=== PATIENT | male | born 1995 | race Caucasian/White ===

== ENCOUNTER 2019-08-19 00:02 | Emergency (ER) | payer OTHER ==
--- NOTE | 2019-08-19 00:29 | ERPHSYRPT ---
- History of Present Illness Time Seen by Provider: 08/19/19 00:24 Historian: patient Exam Limitations: no limitations Physician History: pt is a 24 yr old male reporting trauma to pelvic area today followed by pain across the lower pelvic region; abd itself nontender;no N or V , no fever; denies urinary symptoms or discharge or genital injury or pain;no palp hernia Timing/Duration: today Activities at Onset: other (trauma) Quality: fullness, pressure, tightness Abdominal Pain Onset Location: suprapubic Severity of Pain-Max: moderate Severity of Pain-Current: moderate Modifying Factors: Improves With: movement, palpation Associated Symptoms: denies symptoms Previous symptoms: no prior history Allergies/Adverse Reactions: cefdinir [From OmniceMobilio] Allergy (Mild, Verified 08/19/19 00:30) dpt Allergy (Mild, Uncoded 08/19/19 00:30) Home Medications: No Reportable Medications [No Reported Medications] 08/19/19 [History] Hx Tetanus, Diphtheria Vaccination/Date Given: No Hx Influenza Vaccination/Date Given: No Hx Pneumococcal Vaccination/Date Given: No - Review of Systems Constitutional: No Fever, No Chills Eyes: No Symptoms Ears, Nose, & Throat: No Symptoms Respiratory: No Cough, No Dyspnea Cardiac: No Chest Pain, No Edema, No Syncope Abdominal/Gastrointestinal: Other (pelvic pain), No Abdominal Pain, No Nausea, No Vomiting, No Diarrhea Genitourinary Symptoms: No Dysuria Musculoskeletal: No Back Pain, No Neck Pain Skin: No Rash Neurological: No Dizziness, No Focal Weakness, No Sensory Changes Psychological: No Symptoms Endocrine: No Symptoms All Other Systems: Reviewed and Negative - Past Medical History Pertinent Past Medical History: No - Past Surgical History Past Surgical History: Yes Other Surgical History: tubes in earx2. eye surgery - Social History Smoking Status: Never smoker Exposure to second hand smoke: No Drug Use: none Patient Lives Alone: No - Nursing Vital Signs Nursing Vital Signs: Initial Vital Signs Temperature 97.7 F 08/19/19 00:14 Pulse Rate 94 H 08/19/19 00:14 Respiratory Rate 16 08/19/19 00:14 Blood Pressure 155/86 08/19/19 00:14 O2 Sat by Pulse Oximetry 95 08/19/19 00:14 Pain Scale Pain Intensity 6 - Physical Exam General Appearance: no apparent distress, alert Eye Exam: PERRL/EOMI, eyes nml inspection Ears, Nose, Throat Exam: normal ENT inspection, pharynx normal, moist mucous membranes Neck Exam: normal inspection, non-tender, supple, full range of motion Respiratory Exam: normal breath sounds, lungs clear, No respiratory distress Cardiovascular Exam: regular rate/rhythm, normal heart sounds Gastrointestinal/Abdomen Exam: soft, No tenderness, No distention, No mass, No guarding, No pulsatile mass, No rebound, No hernia Male Genitalia Exam: No hernia, No testicular tenderness Rectal Exam: deferred Back Exam: normal inspection, normal range of motion, No CVA tenderness, No vertebral tenderness Extremity Exam: normal inspection, normal range of motion, pelvis stable Neurologic Exam: alert, oriented x 3, cooperative, normal mood/affect, nml cerebellar function, sensation nml, No motor deficits Skin Exam: normal color, warm, dry - Course Nursing assessment & vital signs reviewed: Yes - Radiology Exams Pelvis X-ray Interpretation: Reviewed by me, No Fracture Ordered Tests: Active Orders 24 hr Category Date Time Status PO Fluid Challenge STAT Care 08/19/19 01:39 Active PELVIS (1 OR 2 VIEWS) Stat Exams 08/19/19 00:23 Taken AMYLASE Stat Lab 08/19/19 01:00 Completed CBC W DIFF Stat Lab 08/19/19 01:00 Completed CMP Stat Lab 08/19/19 01:00 Completed LIPASE Stat Lab 08/19/19 01:00 Completed Lactic Acid Stat Lab 08/19/19 00:21 Completed Manual Differential NC Stat Lab 08/19/19 01:00 Completed UA W/RFX UR CULTURE Stat Lab 08/19/19 01:00 Completed Lab/Rad Data: Laboratory Result Diagrams 08/19/19 01:00 08/19/19 01:00 Laboratory Results 08/19/19 08/19/19 08/19/19 Range/Units 01:00 01:00 01:00 WBC 17.3 H (4.0-10.5) K/mm3 RBC 5.16 (4.1-5.6) M/mm3 Hgb 16.3 (12.5-18.0) gm/dl Hct 44.6 (42-50) % MCV 86.4 (78-100) fl MCH 31.6 (26-32) pg MCHC 36.5 H (32-36) g/dl RDW 13.0 (11.5-14.0) % Plt Count 160 (150-450) K/mm3 MPV 12.3 H (7.5-11.0) fl Sodium 141 (137-145) mmol/L Potassium 3.6 (3.5-5.1) mmol/L Chloride 107 (98-107) mmol/L Carbon Dioxide 25 (22-30) mmol/L Anion Gap 11.8 (5-15) MEQ/L BUN 19 (9-20) mg/dL Creatinine 0.92 (0.66-1.25) mg/dL Estimated GFR > 60.0 ML/MIN Glucose 84 (74-106) mg/dL Lactic Acid (0.4-2.0) Calcium 9.2 (8.4-10.2) mg/dL Total Bilirubin 0.50 (0.2-1.3) mg/dL AST 33 (17-59) U/L ALT 56 H (0-50) U/L Alkaline Phosphatase 127 H (38-126) U/L Serum Total Protein 7.4 (6.3-8.2) g/dL Albumin 4.2 (3.5-5.0) g/dL Amylase 71 (30-110) U/L Lipase 63 (23-300) U/L Urine Color YELLOW (YELLOW) Urine Appearance CLEAR (CLEAR) Urine pH 5.0 (5-6) Ur Specific [place] 1.025 (1.005-1.025) Urine Protein 30 (Negative) Urine Ketones NEGATIVE (NEGATIVE) Urine Blood NEGATIVE (0-5) Zaid/ul Urine Nitrite NEGATIVE (NEGATIVE) Urine Bilirubin NEGATIVE (NEGATIVE) Urine Urobilinogen 2 (0-1) mg/dL Ur Leukocyte Esterase NEGATIVE (NEGATIVE) Urine WBC (Auto) NONE (0-5) /HPF Urine RBC (Auto) NONE (0-2) /HPF U Epithel Cells (Auto) NONE (FEW) /HPF Urine Bacteria (Auto) NONE (NEGATIVE) /HPF Urine Mucus (Auto) SLIGHT (NEGATIVE) /HPF Urine Culture Reflexed NO (NO) Urine Glucose NEGATIVE (NEGATIVE) mg/dL 08/19/19 Range/Units 00:21 WBC (4.0-10.5) K/mm3 RBC (4.1-5.6) M/mm3 Hgb (12.5-18.0) gm/dl Hct (42-50) % MCV (78-100) fl MCH (26-32) pg MCHC (32-36) g/dl RDW (11.5-14.0) % Plt Count (150-450) K/mm3 MPV (7.5-11.0) fl Sodium (137-145) mmol/L Potassium (3.5-5.1) mmol/L Chloride (98-107) mmol/L Carbon Dioxide (22-30) mmol/L Anion Gap (5-15) MEQ/L BUN (9-20) mg/dL Creatinine (0.66-1.25) mg/dL Estimated GFR ML/MIN Glucose (74-106) mg/dL Lactic Acid 1.0 (0.4-2.0) Calcium (8.4-10.2) mg/dL Total Bilirubin (0.2-1.3) mg/dL AST (17-59) U/L ALT (0-50) U/L Alkaline Phosphatase (38-126) U/L Serum Total Protein (6.3-8.2) g/dL Albumin (3.5-5.0) g/dL Amylase (30-110) U/L Lipase (23-300) U/L Urine Color (YELLOW) Urine Appearance (CLEAR) Urine pH (5-6) Ur Specific [place] (1.005-1.025) Urine Protein (Negative) Urine Ketones (NEGATIVE) Urine Blood (0-5) Zaid/ul Urine Nitrite (NEGATIVE) Urine Bilirubin (NEGATIVE) Urine Urobilinogen (0-1) mg/dL Ur Leukocyte Esterase (NEGATIVE) Urine WBC (Auto) (0-5) /HPF Urine RBC (Auto) (0-2) /HPF U Epithel Cells (Auto) (FEW) /HPF Urine Bacteria (Auto) (NEGATIVE) /HPF Urine Mucus (Auto) (NEGATIVE) /HPF Urine Culture Reflexed (NO) Urine Glucose (NEGATIVE) mg/dL - Progress Progress: improved, re-examined Progress Note: 08/19/19 01:22 discussed the elevated wbc with pt and that CT scan is a diagnostic consideration to help rule out traumatic or other pathology and after risk and benefit discussion patient wishes to decline and understands that evolving pathology may be missed and chooses discharge after this limited workup rather than furhter workup in ER or admission , but has the capacity to make this choice; 02/17/20 05:48 Counseled pt/family regarding: lab results, diagnosis, need for follow-up, rad results - Departure Departure Disposition: Home Clinical Impression: abdominal pain SP trauma, elevated WBC of unknown cause, elevated liver function tests Condition: Good Critical Care Time: No Referrals: JAI NOLAN MD [Primary Care Provider] - Instructions: Acute Abdomen (Belly Pain), Adult (DC) Additional Instructions: we have not determined the cause for your elevated WBC and or abd pain and undetected pathology could still be evolving - so further work up with your Dr. is indicated - see them this week and return meantime if not improving, vomiting , fever , dizziness or other concerns; followup with your Dr for elevated blood pressure, elevated white blood count and elevated liver tests.
[2019-08-19 01:04] LABS: Hematocrit 44.6 % (42-50); Hemoglobin 16.3 gm/dl (12.5-18.0); Mean Cell Volume 86.4 fl (78-100); Mean Corpuscular Hemoglobin 31.6 pg (26-32); Mean Corpuscular Hgb Concent. 36.5 g/dl (32-36); Mean Platelet Volume 12.3 fl (7.5-11.0); Platelet Count 160 K/mm3 (150-450); Red Blood Count 5.16 M/mm3 (4.1-5.6); White Blood Count 17.3 K/mm3 (4.0-10.5)
[2019-08-19 01:15] LABS: ALBUMIN 4.2 g/dL (3.5-5.0); ALKALINE PHOSPHATASE 127 U/L (38-126); AMYLASE 71 U/L (30-110); ANION GAP 11.8 MEQ/L (5-15); BLOOD UREA NITROGEN 19 mg/dL (9-20); CHLORIDE 107 mmol/L (98-107); Calcium 9.2 mg/dL (8.4-10.2); Carbon Dioxide 25 mmol/L (22-30); Creatinine 1 0.92 mg/dL (0.66-1.25); Glucose 84 mg/dL (74-106); LIPASE 63 U/L (23-300); Potassium 3.6 mmol/L (3.5-5.1); SGOT/AST 33 U/L (17-59); SGPT/ALT 56 U/L (0-50); SODIUM 141 mmol/L (137-145); Total Protein 7.4 g/dL (6.3-8.2)
[2019-08-19 01:28] LABS: Appearance CLEAR (CLEAR); Bilirubin NEGATIVE (NEGATIVE); Blood NEGATIVE Ery/ul (0-5); Glucose NEGATIVE (NEGATIVE); Ketones NEGATIVE (NEGATIVE); Leukocyte Esterase NEGATIVE (NEGATIVE); Mucus SLIGHT /HPF (NEGATIVE); Nitrite NEGATIVE (NEGATIVE); Protein,Urine Dip 30 (Negative); Specific Gravity 1.025 (1.005-1.025); Urobilinogen 2 mg/dL (0-1)
[2019-08-19 01:32] VITALS: BP 145/81; PULSE 82; O2SAT 95
[2019-08-19 06:02] LABS: BAND 11 % (0.0-2.0); Eosinophil 4 % (0.00-3.0); Lymphocytes 14 % (24-44); Monocyte 6 % (0.0-12.0); Neutrophils 65 % (36.-66.); Platelet Estimate NORMAL (NORMAL); Total Cells Counted 100
--- NOTE | 2019-08-19 08:57 | XRAY ---
Indication: Pain with weightbearing following injury. Comparison: None AP pelvis obtained with the hips neutral and flexed. No bony, articular, or soft tissue abnormalities.
== END 2019-08-19 02:28 | disposition home or self-care (01) ==
LOC: ED 00:02
DX: R10.9 Unspecified abdominal pain (principal); D72.829 Elevated white blood cell count, unspecified; R94.5 Abnormal results of liver function studies; T14.90XA Injury, unspecified, initial encounter
CPT/HCPCS: 36415; 72170; 80053; 81001; 82150; 83605; 83690; 85025; 99283